=== PATIENT | male | born 1945 | race Caucasian/White ===

== ENCOUNTER 2021-04-05 13:06 | Emergency (ER) | payer OTHER ==
[~2021-04-05] VITALS: Ht 177.8 cm; Wt 68.0 kg
[2021-04-05 14:55] LABS: Hematocrit 44.6 % (41.0-53.0); Hemoglobin 14.9 g/dL (13.5-17.5); Mean Corpuscular Hemoglobin 33.1 pg (28.0-32.0); Mean Corpuscular Hgb Conc. 33.4 g/dL (32.0-36.0); Mean Corpuscular Volume 99.3 fL (80.0-100.0); Red Blood Cells 4.49 10^6/uL (4.5-5.90); Red Cell Distribution Width 13.2 % (11.8-14.3); White Blood Cell 10.5 10^3/uL (4.4-10.8)
[2021-04-05 14:59] LABS: Anion Gap 6 (5-15); Blood Urea Nitrogen 20 mg/dL (7-18); Calcium 8.9 mg/dL (8.5-10.1); Carbon Dioxide 26 mmol/L (21-32); Chloride 108 mmol/L (98-107); Glucose 99 mg/dL (74-106); Potassium 3.7 mmol/L (3.5-5.1); Sodium 140 mmol/L (136-145)
[2021-04-05 15:05] LABS: Alanine Aminotransferase 25 U/L (16-61); Alkaline Phosphatase 115 U/L (45-117); Aspartate Aminotransferase 20 U/L (15-37); Bilirubin, Total 0.5 mg/dL (0.2-1.0); GFR African American 133 mL/min; GFR Non-African American 110 mL/min; Total Protein 7.1 g/dL (6.4-8.2)
[2021-04-05 15:31] LABS: Band Neutrophils % (manual) 0; Basophils % (manual) 0 (0.0-2.0); Blast Cells 0; Eosinophils % (manual) 4 (0-7); Lymphocytes % (manual) 19 (10.0-50.0); Metamyelocytes % 0; Monocytes % (manual) 7 (0-12); Myelocytes % 0; Promyelocytes % 0; Reactive Lymphocytes 0
[2021-04-05] MEDS ORDERED: SODIUM CHLORIDE 0.9% 1,000 ML IV ONE (16:00)
[2021-04-05] MEDS ORDERED: SODIUM CHLORIDE 0.9% 1,000 ML IVB ONE (16:00)
[2021-04-05] MEDS ORDERED: FOLIC ACID 1 MG, MULTIPLE VITAMIN 10 ML, MAGNESIUM SULF SDV 50% 8 MEQ, THIAMINE INJ 100... INJ ONE ×5 (17:00)
[2021-04-06 06:20] VITALS: BP 130/62
[2021-04-06] MEDS ORDERED: FOLIC ACID 1 MG, MULTIPLE VITAMIN 10 ML, MAGNESIUM SULF SDV 50% 8 MEQ, THIAMINE INJ 100... INJ SCH ×5 (12:00)
== END 2021-04-06 06:30 | disposition short-term general hospital (02) ==
LOC: ER 13:06 → EDBD 13:06 → ER 04-06 06:30
DX: R53.1 Weakness (principal); R09.89 Other specified symptoms and signs involving the circulatory and respiratory systems; E44.1 Mild protein-calorie malnutrition; H54.40 Blindness, one eye, unspecified eye; K21.9 Gastro-esophageal reflux disease without esophagitis; E78.5 Hyperlipidemia, unspecified; Z68.21 Body mass index [BMI] 21.0-21.9, adult; Z86.73 Personal history of transient ischemic attack (TIA), and cerebral infarction without residual deficits; Z20.822 Contact with and (suspected) exposure to COVID-19
CPT/HCPCS: 36415; 71045; 80053; 83735; 84443; 84484; 85007; 85027; 87426; 93005; 96361; 96365; 99285; J3411; J3475; J7030

== ENCOUNTER 2021-10-27 21:04 | Emergency (ER) | payer OTHER ==
[~2021-10-27] VITALS: Ht 172.7 cm; Wt 59.0 kg
[2021-10-27] MEDS ORDERED: GASTROGRAFIN 30 ML SOL ONE (22:44)
[2021-10-28 01:06] VITALS: BP 119/59
== END 2021-10-28 02:04 | disposition home or self-care (01) ==
LOC: EDBD 21:04 → EDUNIT# 21:04 → ER 21:06
DX: K94.23 Gastrostomy malfunction (principal); R53.1 Weakness; K21.9 Gastro-esophageal reflux disease without esophagitis; E78.5 Hyperlipidemia, unspecified; Z86.73 Personal history of transient ischemic attack (TIA), and cerebral infarction without residual deficits
CPT/HCPCS: 43762; 74018; 99284; Q9963; 43760